=== PATIENT | male | born 1985 | race Caucasian/White ===

== ENCOUNTER → 2020-06-15 | Outpatient (CLI) | payer OTHER ==
[2020-06-15 17:39] LABS: BASO # 0.1 10^3/uL (0.0-0.2); BASO % 0.8 % (0.0-1.0); EOS # 0.1 10^3/uL (0.0-0.5); EOS % 1.3 % (0.0-3.0); HEMATOCRIT 47.2 % (42.0-52.0); LYMPH # 2.3 10^3/uL (1.5-5.0); LYMPH % 36.9 % (24.0-44.0); MEAN CORPUSCULAR HEMOGLOBIN 30.6 pg (27.0-33.0); MEAN CORPUSCULAR HGB CONC 33.9 g/dl (32.0-36.5); MEAN CORPUSCULAR VOLUME 90.2 fl (80.0-96.0); MONO # 0.5 10^3/uL (0.0-0.8); MONO % 8.3 % (0.0-5.0); NEUTROPHILS # 3.3 10^3/uL (1.5-8.5); NEUTROPHILS % 52.5 % (36.0-66.0); PLATELET COUNT, AUTOMATED 247 10^3/uL (150-450); RED BLOOD COUNT 5.23 10^6/uL (4.30-6.10); WHITE BLOOD COUNT 6.2 10^3/uL (4.0-10.0)
[2020-06-15 17:57] LABS: ALBUMIN 4.1 GM/DL (3.2-5.2); ALT/SGPT 109 U/L (12-78); BILIRUBIN,TOTAL 0.6 MG/DL (0.2-1.0); BLOOD UREA NITROGEN 11 MG/DL (7-18); CALCIUM LEVEL 9.5 MG/DL (8.5-10.1); CARBON DIOXIDE LEVEL 29 MEQ/L (21-32); CHLORIDE LEVEL 105 MEQ/L (98-107); CREATININE FOR GFR 1.04 MG/DL (0.70-1.30); GLOMERULAR FILTRATION RATE > 60.0 (>60); GLUCOSE, FASTING 88 MG/DL (70-100); POTASSIUM SERUM 4.7 MEQ/L (3.5-5.1); SODIUM LEVEL 139 MEQ/L (136-145); TOTAL PROTEIN 7.4 GM/DL (6.4-8.2)
== END ==
LOC: M LAB 16:40
DX: K50.80 Crohn's disease of both small and large intestine without complications (principal)

== ENCOUNTER → 2020-07-18 | Outpatient (CLI) | payer OTHER ==
[2020-07-18 15:59] LABS: ALT/SGPT 75 U/L (12-78); BILIRUBIN,TOTAL 0.5 MG/DL (0.2-1.0); BLOOD UREA NITROGEN 8 MG/DL (7-18); CALCIUM LEVEL 9.2 MG/DL (8.5-10.1); CARBON DIOXIDE LEVEL 29 MEQ/L (21-32); CHLORIDE LEVEL 106 MEQ/L (98-107); CREATININE FOR GFR 0.94 MG/DL (0.70-1.30); GLOMERULAR FILTRATION RATE > 60.0 (>60); GLUCOSE, FASTING 84 MG/DL (70-100); POTASSIUM SERUM 4.1 MEQ/L (3.5-5.1); SODIUM LEVEL 141 MEQ/L (136-145); TOTAL PROTEIN 7.3 GM/DL (6.4-8.2)
== END ==
LOC: M LAB 14:42
PROVIDERS: ATTEND Internal Medicine Gastroenterology
DX: R10.9 Unspecified abdominal pain (principal)

== ENCOUNTER → 2020-08-05 | Outpatient (CLI) | payer OTHER ==
[2020-08-05 11:31] LABS: RHEUMATOID FACTOR QUANT < 10.0 IU/ML (<15.0)
[2020-08-05 11:38] LABS: HEMOGLOBIN A1c 5.3 %
[2020-08-05 11:42] LABS: FOLATE 14.8 NG/ML; VITAMIN B12 LEVEL 591 PG/ML
[2020-08-12 03:07] LABS: ANTI DOUBLE STRAND-DNA AB <1 IU/mL (0-9); ANTINUCLEAR ANTIBODIES DIRECT Positive (Negative); CERULOPLASMIN 23.2 mg/dL (16.0-31.0); COPPER PLASMA 110 ug/dL (72-166); RNP ANTIBODIES <0.2 AI (0.0-0.9); SJOGREN'S ANTI SS-A 4.9 AI (0.0-0.9); SJOGREN'S ANTI SS-B <0.2 AI (0.0-0.9); SMITH ANTIBODIES <0.2 AI (0.0-0.9); VITAMIN B6,PYRIDOXAL PHOSPHATE 1.8 ug/L (5.3-46.7); VITAMIN E(ALPHA TOCOPHEROL) 12.6 mg/L (5.9-19.4); VITAMIN E(GAMMA TOCOPHEROL) 2.1 mg/L (0.7-4.9)
== END ==
LOC: M LAB 10:20
PROVIDERS: ATTEND Psychiatry & Neurology Neurology
DX: R25.1 Tremor, unspecified (principal); E11.9 Type 2 diabetes mellitus without complications; G90.09 Other idiopathic peripheral autonomic neuropathy

== ENCOUNTER 2020-08-22 15:58 | Outpatient (CLI) | payer OTHER ==
[~2020-08-22] VITALS: Ht 172.7 cm; Wt 60.7 kg
[2020-08-22] MEDS ORDERED: VEDOLIZUMAB 300 MG in NS 250 ML IV ONE (16:00)
[2020-08-22 16:28] VITALS: BP 115/71
[2020-08-22 17:48] VITALS: BP 118/74
== END 2020-08-22 17:50 | disposition home or self-care (01) ==
LOC: M INFU 15:58
PROVIDERS: ATTEND Internal Medicine Gastroenterology
DX: K50.90 Crohn's disease, unspecified, without complications (principal)
CPT/HCPCS: 96365; J3380

== ENCOUNTER → 2020-08-23 | Outpatient (CLI) | payer OTHER ==
[2020-08-23 15:21] LABS: C REACTIVE PROTEIN QUANTITATIV < 0.30 MG/DL (0.00-0.30); CPK CREATINE PHOSPHOKINASE 124 U/L (39-308); IRON (FE) 49 UG/DL (65-175); MAGNESIUM LEVEL 1.8 MG/DL (1.8-2.4); PHOSPHORUS LEVEL 3.5 MG/DL (2.5-4.9)
[2020-08-23 15:26] LABS: TOTAL 25(OH) VITAMIN D 86.6 NG/ML (30.0-100.0); VITAMIN B12 LEVEL 616 PG/ML (247-911)
[2020-08-25 17:09] LABS: G6PD2 4.65 x10E6/uL (4.14-5.80); SSA SJOGRENS A 4.7 AI (0.0-0.9); SSB SJOGRENS B <0.2 AI (0.0-0.9)
== END ==
LOC: M LAB 14:01
PROVIDERS: ATTEND Internal Medicine
DX: M79.10 Myalgia, unspecified site (principal); M07.60 Enteropathic arthropathies, unspecified site

== ENCOUNTER 2020-09-12 12:38 | Emergency (ER) | payer OTHER ==
[~2020-09-12] VITALS: Ht 172.7 cm; Wt 58.1 kg
[2020-09-12 12:38] VITALS: BP 131/76
--- NOTE | 2020-09-12 14:49 | ED PDOC ---
Post-Departure Follow-Up patient left prior to being seen by an ED provider Kaley Calzada MD Sep 12, 2020 14:49
== END 2020-09-12 21:39 | disposition home or self-care (01) ==
LOC: M ED 12:38
DX: Z53.21 Procedure and treatment not carried out due to patient leaving prior to being seen by health care provider (principal)

== ENCOUNTER → 2020-09-27 | Outpatient (CLI) | payer OTHER ==
--- NOTE | 2020-09-27 09:39 | REPVR ---
PROCEDURE INFORMATION: Exam: MR Lumbar Spine Without Contrast. Exam date and time: 09/27/2020 9:14 AM Age: 34 years old Clinical indication: Low back pain; Additional info: Lbp TECHNIQUE: Imaging protocol: Multiplanar magnetic resonance images of the lumbar spine without intravenous contrast. COMPARISON: No relevant prior studies available. FINDINGS: Vertebrae: There is straightening of the normal lumbar lordosis. There is no fracture or listhesis. Marrow signal is is within normal limits. Spinal cord: Normal signal. No cord compression. L1-L2: No significant disc disease. No significant spinal canal stenosis. No neural foraminal stenosis. L2-L3: No significant disc disease. No significant spinal canal stenosis. No neural foraminal stenosis. L3-L4: No significant disc disease. No significant spinal canal stenosis. No neural foraminal stenosis. L4-L5: No significant disc disease. No significant spinal canal stenosis. No neural foraminal stenosis. L5-S1: There is diffuse disc bulging with superimposed left subarticular protrusion/inferior extrusion and annular tear. This effaces the left lateral recess, with potential compromise of the left S1 nerve root. There is mild facet hypertrophy. There is mild bilateral neural foraminal narrowing. Soft tissues: Unremarkable. IMPRESSION: Left subarticular disc protrusion/extrusion at L5/S1 results in potential compromise of the left S1 nerve root. Electronically signed by: Chitra Tirado On 09/27/2020 09:39:24 AM
== END ==
LOC: M RAD 08:09
PROVIDERS: ATTEND Physician Assistant
DX: M51.27 Other intervertebral disc displacement, lumbosacral region (principal); M54.5 Low back pain

== ENCOUNTER → 2020-10-06 | Outpatient (REF) | payer OTHER ==
[2020-10-06 17:00] LABS: BASO # 0.1 10^3/uL (0.0-0.2); BASO % 1.2 % (0.0-1.0); EOS # 0.2 10^3/uL (0.0-0.5); EOS % 3.5 % (0.0-3.0); HEMATOCRIT 45.4 % (42.0-52.0); HEMOGLOBIN 14.8 g/dl (13.5-17.5); LYMPH # 2.1 10^3/uL (1.5-5.0); LYMPH % 40.6 % (24.0-44.0); MEAN CORPUSCULAR HGB CONC 32.6 g/dl (32.0-36.5); MEAN CORPUSCULAR VOLUME 92.1 fl (80.0-96.0); MONO # 0.4 10^3/uL (0.0-0.8); MONO % 7.8 % (2.0-8.0); NEUTROPHILS # 2.4 10^3/uL (1.5-8.5); NEUTROPHILS % 46.3 % (36.0-66.0); PLATELET COUNT, AUTOMATED 246 10^3/uL (150-450); RED BLOOD COUNT 4.93 10^6/uL (4.30-6.10); WHITE BLOOD COUNT 5.1 10^3/uL (4.0-10.0)
[2020-10-06 17:25] LABS: PERCENT SATURATION 26.8 % (19.7-50.0)
== END ==
LOC: M LAB REF 16:10
PROVIDERS: ATTEND Physician Assistant
DX: D50.9 Iron deficiency anemia, unspecified (principal)

== ENCOUNTER → 2020-11-09 | Outpatient (REF) | payer OTHER ==
[2020-11-09 18:17] LABS: HEMATOCRIT 45.7 % (42.0-52.0); HEMOGLOBIN 15.6 g/dl (13.5-17.5); MEAN CORPUSCULAR HEMOGLOBIN 30.8 pg (27.0-33.0); MEAN CORPUSCULAR HGB CONC 34.1 g/dl (32.0-36.5); MEAN CORPUSCULAR VOLUME 90.1 fl (80.0-96.0); PLATELET COUNT, AUTOMATED 289 10^3/uL (150-450); RED BLOOD COUNT 5.07 10^6/uL (4.30-6.10); WHITE BLOOD COUNT 4.7 10^3/uL (4.0-10.0)
[2020-11-09 18:46] LABS: PERCENT SATURATION 18.2 % (19.7-50.0)
== END ==
LOC: M LAB REF 16:17
PROVIDERS: ATTEND Physician Assistant
DX: D50.9 Iron deficiency anemia, unspecified (principal)

== ENCOUNTER → 2020-11-24 | Outpatient (CLI) | payer OTHER ==
[2020-11-24 15:47] LABS: PLATELET COUNT, AUTOMATED 293 10^3/uL (150-450)
[2020-11-24 15:57] LABS: INR 0.99; PROTHROMBIN TIME 13.3 SECONDS (12.5-14.3)
[2020-11-24 15:58] LABS: PARTIAL THROMBOPLASTIN TIME 30.6 SECONDS (24.2-38.5)
[2020-11-24 16:03] LABS: COLLAGEN EPINEPHRINE 98 SECONDS (74-162)
== END ==
LOC: M WUC 13:45
PROVIDERS: ATTEND Physician Assistant
DX: M47.817 Spondylosis without myelopathy or radiculopathy, lumbosacral region (principal)

== ENCOUNTER → 2020-12-02 | Outpatient (REF) | payer OTHER ==
[2020-12-07 23:07] LABS: ALPRAZOLAM, URINE Negative (Cutoff=100); BENZODIAZEPINES, URINE Negative ng/mL (Cutoff=100); CANNABINOID, URINE Positive (Cutoff=20); CARBOXY THC (GC/MS) >300 ng/mL (Cutoff=10); CLONAZEPAM, URINE Negative (Cutoff=100); FLURAZEPAM, URINE Negative (Cutoff=100); LORAZEPAM, URINE Negative (Cutoff=100); MIDAZOLAM, URINE Negative (Cutoff=100); NORDIAZEPAM, URINE Negative (Cutoff=100); OXAZEPAM, URINE Negative (Cutoff=100); TEMAZEPAM, URINE Negative (Cutoff=100); TRIAZOLAM, URINE Negative (Cutoff=100)
== END ==
LOC: M LAB REF 18:38
PROVIDERS: ATTEND Pediatrics
DX: F11.20 Opioid dependence, uncomplicated (principal)

== ENCOUNTER 2020-12-12 16:27 | Outpatient (CLI) | payer OTHER ==
[~2020-12-12] VITALS: Ht 172.7 cm; Wt 60.7 kg
[2020-12-12 14:30] VITALS: BP 120/66
[~2020-12-12 16:27] MED LIST: VEDOLIZUMAB 300 MG in NS 250 ML IV ONE
[2020-12-12] MEDS ORDERED: FERR325T3 PO (17:18)
[2020-12-12] MEDS ORDERED: BUDE3CAP PO (17:18)
[2020-12-12] MEDS ORDERED: NEUR600T PO (17:20)
[2020-12-12] MEDS ORDERED: ZOFR4TAB16 PO (17:20)
[2020-12-12] MEDS ORDERED: HYOS125TA SL (17:28)
[2020-12-12] MEDS ORDERED: TIZA2CAP PO (17:28)
[2020-12-12] MEDS ORDERED: HYDR-3713 PO (17:28)
[2020-12-12] MEDS ORDERED: FINA1TAB12 PO (17:28)
[2020-12-12] MEDS ORDERED: EFFE150C2 PO (17:28)
[2020-12-12] MEDS ORDERED: GNP200TA4 PO ×2 (17:28)
[2020-12-12] MEDS ORDERED: XANA1TAB2 PO (17:28)
[2020-12-12] MEDS ORDERED: XIID5DRO OP (17:28)
[2020-12-12 18:05] VITALS: BP 126/70
== END 2020-12-12 18:05 | disposition home or self-care (01) ==
LOC: M INFU 16:27
PROVIDERS: ATTEND Internal Medicine Gastroenterology
DX: K50.90 Crohn's disease, unspecified, without complications (principal)
CPT/HCPCS: 96365; J3380

== ENCOUNTER → 2020-12-30 | Outpatient (CLI) | payer OTHER ==
[~2020-12-30] MED LIST changes: +BUDE3CAP PO; +DICL1GEL3 TOP; +EFFE150C2 PO; +ENTY1INJ IV; +FERR325T3 PO; +FINA1TAB12 PO; +GNP200TA4 PO; +HYDR-3713 PO; +HYOS125TA PO; +LORA24TA PO; +NEUR600T PO; +SUMA100T2 PO; +TIZA2CAP PO; -VEDOLIZUMAB 300 MG in NS 250 ML IV ONE; +XANA1TAB2 PO; +XIID5DRO OP; +ZOFR4TAB16 PO
--- NOTE | 2021-01-01 06:35 | REP ---
INDICATION: POLYNEUROPATHY AND PAIN IN RIGHT HIP. COMPARISON: None. TECHNIQUE: AP view of the pelvis with neutral and frog-lateral views of the right and left hip. FINDINGS: Increased sclerosis with subtle spurring along the bilateral acetabula as well as mild bilateral joint space narrowing noted to the right and left hip (right greater than left). IMPRESSION: Mild arthritic changes to the bilateral hips (right greater than left). <Electronically signed by Nico Sabillon > 01/01/21 [id number]
--- NOTE | 2021-01-01 06:39 | REP ---
INDICATION: POLYNEUROPATHY AND PAIN IN RIGHT HIP. COMPARISON: None. TECHNIQUE: AP, lateral, open mouth views of the cervical spine. FINDINGS: Alignment maintained. Vertebral bodies intact. Lateral view suggests minimal disc space narrowing at C4-5. Remainder of the examination is age-appropriate. IMPRESSION: Questionable minimal disc space narrowing at C4-5. <Electronically signed by Nico Sabillon > 01/01/21 06
== END ==
LOC: M WUC 11:02
PROVIDERS: ATTEND Pediatrics
DX: G62.9 Polyneuropathy, unspecified (principal); M16.0 Bilateral primary osteoarthritis of hip

== ENCOUNTER → 2020-12-31 | Outpatient (CLI) | payer OTHER | LOC: M LABSMTC 08:39 | PROVIDERS: ATTEND Anesthesiology | DX: Z01.812 Encounter for preprocedural laboratory examination (principal); Z20.822 Contact with and (suspected) exposure to COVID-19 ==

== ENCOUNTER 2021-01-05 11:53 | Day surgery (SDC) | payer OTHER ==
[~2021-01-05] VITALS: Ht 172.7 cm; Wt 59.1 kg
[~2021-01-05 11:53] MED LIST changes: +LR 1,000 ML IV SCH; +dexameTHASONE 4 MG/ML 1ML VIAL (J1100 PER 1MG) IV ONE
[2021-01-05] MEDS ORDERED: propofoL 200 MG/20 ML VIAL As Ordered ONE (15:58)
[2021-01-05] MEDS ORDERED: LIDOCAINE 2% 100MG/5ML SDV (FOR ANES.) As Ordered ONE (15:58)
[2021-01-05] MEDS ORDERED: MIDAZOLAM INJ 2MG/2ML VIAL (J2250 PER 1MG) As Ordered ONE (15:58)
[2021-01-05] MEDS ORDERED: ONDANSETRON 4MG/2ML VIAL As Ordered ONE (15:58)
[2021-01-05] MEDS ORDERED: dexameTHASONE 4 MG/ML 1ML VIAL (J1100 PER 1MG) As Ordered ONE (15:58)
[2021-01-05] MEDS ORDERED: fentaNYL 100 MCG/2 ML INJECTION (J3010) As Ordered ONE (15:59)
[2021-01-05] MEDS ORDERED: LIDOCAINE W/EPINEPHRINE 1% 20ML VIAL As Ordered ONE (17:03)
[2021-01-05] MEDS ORDERED: EPINEPHrine 1MG/ML INJ 30ML MD-VIAL As Ordered ONE (17:44)
[2021-01-05] MEDS ORDERED: METHYLENE BLUE 0.5% (5MG/ML) 10 ML AMP (PROVAYBLUE) As Ordered ONE (17:44)
[2021-01-05 18:55] VITALS: BP 140/82
--- NOTE | 2021-01-06 08:43 | RO ---
OPERATIVE NOTE DATE OF OPERATION: 01/05/2021 PREOPERATIVE DIAGNOSIS: Xerostomia and possible Sjogren disease. POSTOPERATIVE DIAGNOSIS: Xerostomia and possible Sjogren disease. PROCEDURE PERFORMED: Biopsy of the minor salivary gland from the left inner aspect of the lower lip. SURGEON: Nilson Mena MD. ROBOTICS SOFTWARE ENGINEER: None. ANESTHESIA: Local sedation. CLINICAL PREAMBLE: This 35-year-old man presented to the office with history of xerostomia. He is being worked up for possible Sjogren's disease. I have been asked to obtain the minor salivary glands from the oral cavity to confirm the diagnosis of Sjogren's disease. Surgery listed above has been discussed with the patient. He understood and consented to the procedure. OR NARRATION: Patient was identified in preoperative holding and brought to the operating room in stable condition. In the supine position on the operating room table, patient received local sedation and management of the airway by the anesthesia team. The patient was prepped and draped in the usual sterile fashion for the procedure. The lower lip was everted. A chalazion clamp was placed over the left lower lip region. The mucosa was infiltrate with 1% Lidocaine with 1:100,000 epinephrine. Horizontal incision was made through the mucosa. Minor salivary glands were identified and carefully dissected out and sent to pathology in formalin solution. At least 6 or 7 minor salivary glands were successfully biopsied. The incision was closed using 4-0 Vicryl. At the end of the procedure sponge, needle, and instrument counts were correct. No complications were encountered. Estimated blood loss was less than 1 mL. Local sedation was reversed, the patient was awakened, and taken to the recovery room in stable condition.
== END 2021-01-05 19:00 | disposition home or self-care (01) ==
LOC: M SDC 11:53
PROVIDERS: ATTEND Otolaryngology
DX: R68.2 Dry mouth, unspecified (principal); K44.9 Diaphragmatic hernia without obstruction or gangrene; K21.9 Gastro-esophageal reflux disease without esophagitis; D64.9 Anemia, unspecified; F32.9 Major depressive disorder, single episode, unspecified; F12.10 Cannabis abuse, uncomplicated; F17.218 Nicotine dependence, cigarettes, with other nicotine-induced disorders; Z79.899 Other long term (current) drug therapy; G43.909 Migraine, unspecified, not intractable, without status migrainosus
CPT/HCPCS: 42405; 88307; J1100; J2250; J2405; J3010; Q9968

== ENCOUNTER → 2021-01-27 | Outpatient (CLI) | payer OTHER ==
[~2021-01-27] MED LIST changes: -LR 1,000 ML IV SCH; -dexameTHASONE 4 MG/ML 1ML VIAL (J1100 PER 1MG) IV ONE
[2021-01-27 15:55] LABS: BASO % 0.6 % (0.0-1.0); EOS # 0.1 10^3/uL (0.0-0.5); EOS % 1.9 % (0.0-3.0); HEMATOCRIT 46.7 % (42.0-52.0); HEMOGLOBIN 15.4 g/dl (13.5-17.5); LYMPH # 2.3 10^3/uL (1.5-5.0); LYMPH % 33.5 % (24.0-44.0); MEAN CORPUSCULAR HEMOGLOBIN 30.7 pg (27.0-33.0); MEAN CORPUSCULAR VOLUME 93.2 fl (80.0-96.0); MONO # 0.6 10^3/uL (0.0-0.8); MONO % 8.3 % (2.0-8.0); NEUTROPHILS # 3.8 10^3/uL (1.5-8.5); NEUTROPHILS % 55.4 % (36.0-66.0); PLATELET COUNT, AUTOMATED 280 10^3/uL (150-450); RED BLOOD COUNT 5.01 10^6/uL (4.30-6.10); WHITE BLOOD COUNT 6.8 10^3/uL (4.0-10.0)
[2021-01-27 16:30] LABS: ALBUMIN 4.3 GM/DL (3.2-5.2); ALT/SGPT 32 U/L (12-78); BILIRUBIN,TOTAL 0.3 MG/DL (0.2-1.0); BLOOD UREA NITROGEN 8 MG/DL (7-18); CALCIUM LEVEL 9.6 MG/DL (8.5-10.1); CARBON DIOXIDE LEVEL 30 MEQ/L (21-32); CHLORIDE LEVEL 102 MEQ/L (98-107); CREATININE FOR GFR 0.74 MG/DL (0.70-1.30); GLOMERULAR FILTRATION RATE > 60.0 (>60); GLUCOSE, FASTING 83 MG/DL (70-100); POTASSIUM SERUM 4.2 MEQ/L (3.5-5.1); SODIUM LEVEL 138 MEQ/L (136-145); TOTAL PROTEIN 7.7 GM/DL (6.4-8.2)
[2021-01-27 16:39] LABS: VITAMIN B12 LEVEL 422 PG/ML (247-911)
[2021-01-27 16:50] LABS: HEPATITIS B SURFACE ANTIGEN NEGATIVE (NEGATIVE)
== END ==
LOC: M WUC 14:48
PROVIDERS: ATTEND Internal Medicine Gastroenterology
DX: K50.80 Crohn's disease of both small and large intestine without complications (principal)

== ENCOUNTER → 2021-01-30 | Outpatient (REF) | payer OTHER | LOC: M LAB REF 18:58 | PROVIDERS: ATTEND Internal Medicine Gastroenterology | DX: K50.80 Crohn's disease of both small and large intestine without complications (principal) ==

== ENCOUNTER 2021-02-06 15:53 | Outpatient (CLI) | payer OTHER ==
[~2021-02-06] VITALS: Ht 172.7 cm; Wt 60.7 kg
[2021-02-06 16:00] VITALS: BP 148/79
[2021-02-06] MEDS ORDERED: VEDOLIZUMAB 300 MG in NS 250 ML IV ONE (16:00)
[2021-02-06 17:00] VITALS: BP 133/81
== END 2021-02-06 17:10 | disposition home or self-care (01) ==
LOC: M INFU 15:53
PROVIDERS: ATTEND Internal Medicine Gastroenterology
DX: K50.90 Crohn's disease, unspecified, without complications (principal); Z88.8 Allergy status to other drugs, medicaments and biological substances
CPT/HCPCS: 96365; J3380

== ENCOUNTER → 2021-02-09 | Outpatient (CLI) | payer OTHER ==
[~2021-02-09] MED LIST changes: +GLUCAGON INJ 1MG VIAL As Ordered ONE; +ISOVUE-370 76% 100ML VIAL As Ordered ONE; +VoLumen 0.1% SUSPENSION 450ML BOTTLE As Ordered ONE
== END ==
LOC: M RAD 09:35
PROVIDERS: ATTEND Internal Medicine Gastroenterology
DX: K50.80 Crohn's disease of both small and large intestine without complications (principal)
CPT/HCPCS: 74177; J1610; Q9967

== ENCOUNTER → 2021-04-07 | Outpatient (REF) | payer OTHER ==
[~2021-04-07] MED LIST changes: -GLUCAGON INJ 1MG VIAL As Ordered ONE; -ISOVUE-370 76% 100ML VIAL As Ordered ONE; -VoLumen 0.1% SUSPENSION 450ML BOTTLE As Ordered ONE
[2021-04-07 17:43] LABS: C REACTIVE PROTEIN QUANTITATIV < 0.30 MG/DL (0.00-0.30); IRON (FE) 95 UG/DL (65-175)
[2021-04-07 17:51] LABS: TOTAL 25(OH) VITAMIN D 35.4 NG/ML (30.0-100.0)
== END ==
LOC: M SFHCRHEU 13:19
PROVIDERS: ATTEND Internal Medicine
DX: E67.3 Hypervitaminosis D (principal); M35.00 Sjogren syndrome, unspecified; R53.83 Other fatigue

== ENCOUNTER → 2021-04-27 | Outpatient (CLI) | payer OTHER ==
[2021-04-27 16:03] LABS: BASO # 0.1 10^3/uL (0.0-0.2); BASO % 0.9 % (0.0-1.0); EOS # 0.2 10^3/uL (0.0-0.5); EOS % 2.9 % (0.0-3.0); HEMATOCRIT 43.6 % (42.0-52.0); HEMOGLOBIN 14.9 g/dl (13.5-17.5); LYMPH # 2.6 10^3/uL (1.5-5.0); LYMPH % 34.9 % (24.0-44.0); MEAN CORPUSCULAR HEMOGLOBIN 31.4 pg (27.0-33.0); MEAN CORPUSCULAR HGB CONC 34.2 g/dl (32.0-36.5); MONO # 0.7 10^3/uL (0.0-0.8); MONO % 8.8 % (2.0-8.0); NEUTROPHILS # 3.9 10^3/uL (1.5-8.5); NEUTROPHILS % 52.1 % (36.0-66.0); PLATELET COUNT, AUTOMATED 298 10^3/uL (150-450); RED BLOOD COUNT 4.74 10^6/uL (4.30-6.10); WHITE BLOOD COUNT 7.5 10^3/uL (4.0-10.0)
[2021-04-27 16:14] LABS: C REACTIVE PROTEIN QUANTITATIV < 0.30 MG/DL (0.00-0.30); RHEUMATOID FACTOR QUANT < 10.0 IU/ML (<15.0)
[2021-04-27 16:41] LABS: ERYTHROCYTE SEDIMENTATION RATE 4 mm/hr (0-15)
== END ==
LOC: M WUC 14:55
PROVIDERS: ATTEND Orthopaedic Surgery
DX: S46.011A Strain of muscle(s) and tendon(s) of the rotator cuff of right shoulder, initial encounter (principal); X58.XXXA Exposure to other specified factors, initial encounter; Y92.9 Unspecified place or not applicable; Y93.9 Activity, unspecified; Y99.9 Unspecified external cause status

== ENCOUNTER → 2021-05-04 | Outpatient (CLI) | payer OTHER ==
[~2021-05-04] MED LIST changes: +VEDOLIZUMAB 300 MG in NS 250 ML IV ONE
[2021-05-04 09:30] VITALS: BP 117/66
[2021-05-04 10:30] VITALS: BP 104/53
== END ==
LOC: M INFU 09:28
PROVIDERS: ATTEND Internal Medicine Gastroenterology
DX: K50.90 Crohn's disease, unspecified, without complications (principal)
CPT/HCPCS: 96365; J3380

== ENCOUNTER → 2021-08-09 | Outpatient (CLI) | payer OTHER ==
[~2021-08-09] MED LIST changes: -VEDOLIZUMAB 300 MG in NS 250 ML IV ONE
== END ==
LOC: M PAIN 09:00
PROVIDERS: ATTEND Anesthesiology
DX: M51.16 Intervertebral disc disorders with radiculopathy, lumbar region (principal); G89.29 Other chronic pain; M35.00 Sjogren syndrome, unspecified; K50.90 Crohn's disease, unspecified, without complications; M25.559 Pain in unspecified hip; G43.909 Migraine, unspecified, not intractable, without status migrainosus; F17.210 Nicotine dependence, cigarettes, uncomplicated; Z88.8 Allergy status to other drugs, medicaments and biological substances; Z91.09 Other allergy status, other than to drugs and biological substances; Z79.899 Other long term (current) drug therapy

== ENCOUNTER 2021-09-28 15:04 | Outpatient (CLI) | payer OTHER ==
[~2021-09-28] VITALS: Ht 172.7 cm; Wt 60.7 kg
[2021-09-28 15:23] VITALS: BP 113/79
[2021-09-28] MEDS ORDERED: VEDOLIZUMAB 300 MG in NS 250 ML IV ONE (15:30)
[2021-09-28 16:19] VITALS: BP 113/64
== END 2021-09-28 16:20 | disposition home or self-care (01) ==
LOC: M INFU 15:04
PROVIDERS: ATTEND Internal Medicine Gastroenterology
DX: K50.90 Crohn's disease, unspecified, without complications (principal); Z88.8 Allergy status to other drugs, medicaments and biological substances
CPT/HCPCS: 96365; J3380

== ENCOUNTER 2021-10-12 15:09 | Outpatient (CLI) | payer OTHER ==
[~2021-10-12] VITALS: Ht 172.7 cm; Wt 60.7 kg
[2021-10-12 15:21] VITALS: BP 130/63
[2021-10-12] MEDS ORDERED: VEDOLIZUMAB 300 MG in NS 250 ML IV ONE (15:30)
[2021-10-12 16:47] VITALS: BP 127/64
== END 2021-10-12 16:50 | disposition home or self-care (01) ==
LOC: M INFU 15:09
PROVIDERS: ATTEND Internal Medicine Gastroenterology
DX: K50.90 Crohn's disease, unspecified, without complications (principal); Z88.8 Allergy status to other drugs, medicaments and biological substances
CPT/HCPCS: 96365; J3380

== ENCOUNTER 2021-11-09 13:23 | Outpatient (CLI) | payer OTHER ==
[~2021-11-09] VITALS: Ht 172.7 cm; Wt 60.7 kg
[2021-11-09] MEDS ORDERED: VEDOLIZUMAB 300 MG in NS 250 ML IV ONE (13:30)
[2021-11-09 13:35] VITALS: BP 130/67
[2021-11-09 14:45] VITALS: BP 110/57
== END 2021-11-09 14:45 | disposition home or self-care (01) ==
LOC: M INFU 13:23
PROVIDERS: ATTEND Internal Medicine Gastroenterology
DX: K50.90 Crohn's disease, unspecified, without complications (principal); Z88.8 Allergy status to other drugs, medicaments and biological substances
CPT/HCPCS: 96365; J3380

== ENCOUNTER → 2021-11-23 | Outpatient (CLI) | payer OTHER ==
[~2021-11-23] MED LIST changes: +CIME200T4 PO; -GNP200TA4 PO
== END ==
LOC: M PAIN 11:30
PROVIDERS: ATTEND Anesthesiology
DX: Z53.21 Procedure and treatment not carried out due to patient leaving prior to being seen by health care provider (principal)

== ENCOUNTER → 2021-12-21 | Outpatient (CLI) | payer OTHER | LOC: M PAIN 14:30 | PROVIDERS: ATTEND Nurse Practitioner Family | DX: M51.16 Intervertebral disc disorders with radiculopathy, lumbar region (principal); G89.29 Other chronic pain; G43.909 Migraine, unspecified, not intractable, without status migrainosus; F17.210 Nicotine dependence, cigarettes, uncomplicated; Z88.8 Allergy status to other drugs, medicaments and biological substances; Z91.09 Other allergy status, other than to drugs and biological substances; Z79.899 Other long term (current) drug therapy ==